=== PATIENT | male | born 1980 | race Caucasian/White ===

== ENCOUNTER 2021-06-28 19:28 | Emergency (ER) | payer SELFPAY ==
[~2021-06-28] VITALS: Ht 182.9 cm; Wt 83.0 kg
[2021-06-28] MEDS ORDERED: CYCL5TAB MT (20:51)
[2021-06-28] MEDS ORDERED: IBUP-2030 MT (20:51)
[2021-06-28] MEDS ORDERED: KETOROLAC 60MG/2ML VIAL IM ONE (21:00)
[2021-06-28] MEDS ORDERED: CYCLOBENZAPRINE 10MG TABLET PO SCH (21:00)
[2021-06-28 21:08] VITALS: BP 139/94
== END 2021-06-28 21:40 | disposition home or self-care (01) ==
LOC: ER 19:28
DX: S13.4XXA Sprain of ligaments of cervical spine, initial encounter (principal); V49.49XA Driver injured in collision with other motor vehicles in traffic accident, initial encounter; Y93.89 Activity, other specified; Y92.89 Other specified places as the place of occurrence of the external cause; Y99.8 Other external cause status
CPT/HCPCS: 96372; 99283; J1885